=== PATIENT | female | born 1950 | race Caucasian/White ===

== ENCOUNTER 2018-04-07 07:34 | Outpatient (CLI) | payer MEDICARE, OTHER ==
--- NOTE | 2018-04-07 09:57 | CT ---
CT SINUS WITHOUT IV CONTRAST: HISTORY: A 68-year-old female with a history of chronic sinusitis. Prior sinus surgery. FINDINGS: Bilateral nasal/sinal surgical changes. Very mild ethmoid sinus mucosal disease and frontal sinus mu cosal disease with mild bilateral maxillary sinus mucosal periosteal thickening. No air-fluid level. No bone destruction. No soft tissue mass. IMPRESSION: Status post nasal sinal surgery. Very mild sinus mucosal changes. No air-fluid level or other acute process. POS: RNONIE
== END 2018-04-07 07:35 | disposition home or self-care (01) ==
LOC: BICCT 07:34
PROVIDERS: ATTEND Family Medicine
DX: J32.9 Chronic sinusitis, unspecified (principal); Z98.890 Other specified postprocedural states

== ENCOUNTER 2023-01-19 00:10 | Emergency (ER) | payer MEDICARE ==
[2023-01-19] MEDS ORDERED: Metoclopramide HCl 10 MG/2 ML VIAL ONE (00:48)
[2023-01-19 01:39] LABS: Troponin I 0.013 ng/mL (< 0.028)
[2023-01-19 01:40] LABS: ALT (SGPT) 21 U/L (8-55); AST (SGOT) 30 U/L (5-34); Albumin 4.7 g/dL (3.4-4.8); Alkaline Phosphatase 77 U/L (40-110); Anion Gap 16 mmol/L (10-20); BUN (Urea Nitrogen) 15 mg/dL (9.8-20.1); Bilirubin, Total 0.5 mg/dL (0.2-1.2); Calc. Creatinine Clearance 0 mL/min (70-130); Carbon Dioxide 24 mmol/L (23-31); Chloride 100 mmol/L (98-107); Estimated GFR 64; Globulin 2.8 g/dL (2.4-3.5); Glucose 100 mg/dL (83-110); Lipase 10 U/L (8-78); Protein, Total 7.5 g/dL (5.8-8.1); Sodium 136 mmol/L (136-145)
[2023-01-19 01:46] LABS: #Eosinphils 0.1 thou/uL (0.0-0.7); #Monocytes 0.4 thou/uL (0.11-0.59); #Neutrophils 4.4 thou/uL (1.40-6.50); %Basophils 0.5 % (0.0-1.0); %Lymphocytes 21.1 % (21.0-51.0); %Monocytes 6.5 % (0.0-10.0); %Neutrophils 69.7 % (42.0-75.0); Hematocrit 42.4 % (36.0-47.0); Mean Corpuscular HGB CONC 35.4 g/dL (32.0-36.0); Mean Corpuscular Hemoglobin 31.6 pg (27.0-31.0); Mean Corpuscular Volume 89.5 fl (78.0-98.0); Mean Platelet Volume 10.9 fL (7.4-10.4); Platelet Count 222 10x3/uL (130-400); RBC Distribution Width 11.6 % (11.5-14.5); Red Blood Cell (RBC) Count 4.74 mill/uL (4.20-5.40); White Blood Cell (WBC) Count 6.4 10x3/uL (4.8-10.8)
[2023-01-19] MEDS ORDERED: Acetaminophen 500 MG TAB ONE (03:31)
[2023-01-19 03:34] LABS: Bacteria/HPF None Seen HPF (None Seen); Bilirubin Negative (Negative); Blood, Urine Negative (Negative); CAUTI Indications for Culture Dysuria,urgency,freq; Clarity Turbid (Clear); Glucose, Urine (Dipstick) Normal (Negative); Ketone, Urine Negative (Negative); Leukocyte 25 Leu/uL (Negative); Nitrite Negative (Negative); Protein, Urine (Dipstick) Negative (Neg-Trace); Specific Gravity, Urine 1.049 (1.002-1.036); Squamous Epithelial 0-3 HPF (0-3); Urobilinogen Normal mg/dL (Less than 2); pH, Urine 7.5 (5.0-9.0)
[2023-01-19 03:36] LABS: Urine Culture Reflex No No
[2023-01-19] MEDS ORDERED: Iopamidol 370 76% 100 ML VIAL ONE (11:03)
== END 2023-01-19 03:48 | disposition home or self-care (01) ==
LOC: ERS 00:10
DX: R11.10 Vomiting, unspecified (principal); I10 Essential (primary) hypertension; I25.10 Atherosclerotic heart disease of native coronary artery without angina pectoris
CPT/HCPCS: 74177; 80053; 81001; 83690; 84484; 85025; 93005; 96365; J2765; Q9967